=== PATIENT | male | born 1985 | race Caucasian/White ===

== ENCOUNTER 2017-08-18 10:43 | Emergency (ER) | payer OTHER ==
[~2017-08-18] VITALS: Ht 170.2 cm; Wt 86.4 kg
[2017-08-18] MEDS ORDERED: IBUP100T53 PO (10:55)
[2017-08-18] MEDS ORDERED: FLUORESCEIN SODIUM 1 MG STRIP ONE (11:51)
[2017-08-18] MEDS ORDERED: PROPARACAINE HCL 0.5% 15 ML OPHTHALMIC SOLUTION OD ONE (12:00)
[2017-08-18 13:19] VITALS: BP 124/68
== END 2017-08-18 14:10 | disposition home or self-care (01) ==
LOC: EMS 10:46
DX: S05.92XA Unspecified injury of left eye and orbit, initial encounter (principal); F17.200 Nicotine dependence, unspecified, uncomplicated; H20.9 Unspecified iridocyclitis; X58.XXXA Exposure to other specified factors, initial encounter; Y93.89 Activity, other specified; Y92.89 Other specified places as the place of occurrence of the external cause; Y99.8 Other external cause status
CPT/HCPCS: 99283; 99406

== ENCOUNTER 2019-02-24 22:02 | Emergency (ER) | payer OTHER ==
[~2019-02-24] VITALS: Ht 170.2 cm; Wt 84.1 kg
[~2019-02-24 22:02] MED LIST: IBUP100T53 PO
[2019-02-24] MEDS ORDERED: AZITHROMYCIN 250 MG TABLET PO ONE (22:15)
[2019-02-24] MEDS ORDERED: CefTRIAXone SODIUM 1 GM/VIAL IM ONE (22:15)
[2019-02-24] MEDS ORDERED: LIDOCAINE/PF 1% 2 ML VIAL IM ONE (22:15)
[2019-02-24 22:24] VITALS: BP 118/71
== END 2019-02-24 23:48 | disposition home or self-care (01) ==
LOC: EMS 22:03
DX: N34.2 Other urethritis (principal); F12.90 Cannabis use, unspecified, uncomplicated
CPT/HCPCS: 81002; 96372; 99283; J0696; J3490

== ENCOUNTER 2019-04-05 22:46 | Emergency (ER) | payer SELFPAY ==
[~2019-04-05] VITALS: Ht 170.2 cm; Wt 79.5 kg
[2019-04-05 23:15] VITALS: BP 124/72
[2019-04-05 23:42] LABS: APPEARANCE,URINE TURBID (CLEAR); GLUCOSE, URINE (UA) NEGATIVE (NEGATIVE); KETONES,URINE NEGATIVE (NEGATIVE); LEUKOCYTE ESTERASE ,URINE MODERATE (NEGATIVE); NITRATE,URINE NEGATIVE (NEGATIVE); OCCULT BLOOD,URINE MODERATE (NEGATIVE); PH,URINE 5.5 (5.0-8.0); PROTEIN,URINE POS 1+ (NEGATIVE); UROBILINOGEN,URINE 0.2 mg/dL (<=1.0)
[2019-04-05 23:46] LABS: BILIRUBIN,URINE PRELIM. POSITIVE (NEGATIVE)
[2019-04-05 23:52] LABS: BACTERIA,URINE Moderate /HPF (None Seen); RENAL EPITHELIAL CELLS,URINE Few /LPF (None Seen); SQUAMOUS EPITHELIAL CELL,UR Few /LPF (None Seen); WBC,URINE >100 /HPF (0-5)
[2019-04-06] MEDS ORDERED: LIDOCAINE/PF 1% 2 ML VIAL IM ONE (01:00)
[2019-04-06] MEDS ORDERED: AZITHROMYCIN 250 MG TABLET PO ONE (01:00)
[2019-04-06] MEDS ORDERED: CefTRIAXone SODIUM 1 GM/VIAL IM ONE (01:00)
== END 2019-04-06 01:41 | disposition home or self-care (01) ==
LOC: EMS 22:47
DX: N39.0 Urinary tract infection, site not specified (principal); A64 Unspecified sexually transmitted disease; F12.90 Cannabis use, unspecified, uncomplicated
CPT/HCPCS: 81001; 87086; 87491; 87591; 96372; 99283; J0696; J3490

== ENCOUNTER 2020-06-12 08:42 | Emergency (ER) | payer OTHER ==
[~2020-06-12] VITALS: Ht 172.7 cm; Wt 81.8 kg
[2020-06-12] MEDS ORDERED: IOVERSOL 350 MG/ML 100 ML VIAL ONE (09:13)
[2020-06-12] MEDS ORDERED: SODIUM CHLORIDE 0.9% 100 ML ONE (09:13)
[2020-06-12] MEDS ORDERED: ACETAMINOPHEN 500 MG TABLET PO ONE (09:30)
[2020-06-12] MEDS ORDERED: MORPHINE SULFATE 2 MG/ML SYRINGE IVP ONE ×2 (09:30→11:45)
[2020-06-12 09:41] LABS: BASOPHILS % (AUTO) 0.5 % (0.0-2.0); EOSINOPHILS % (AUTO) 3.8 % (1.0-6.0); HEMATOCRIT 34.7 % (41-53); HEMOGLOBIN 11.6 g/dL (13.5-17.5); LYMPHOCYTES # (AUTO) 1.9 K/uL (1.0-4.8); LYMPHOCYTES % (AUTO) 25.8 % (22.0-44.0); MEAN CORPUSCULAR HEMOGLOBIN 28.6 pg (26.0-34.0); MEAN CORPUSCULAR HGB CONC 33.3 G/dL (31.0-37.0); MEAN CORPUSCULAR VOLUME 86 fL (80-100); MONOCYTES # (AUTO) 0.8 K/uL (0.1-1.0); MONOCYTES % (AUTO) 10.3 % (2.0-9.0); NEUTROPHILS # (AUTO) 4.4 K/uL (1.8-7.7); NEUTROPHILS % (AUTO) 59.6 % (40.0-70.0); PLATELET COUNT (AUTO) 372 K/uL (150-450); RED BLOOD CELL COUNT(AUTO) 4.05 MIL/uL (4.50-5.90); RED CELL DISTRIBUTION WIDTH 12.9 % (11.5-14.5)
[2020-06-12 09:50] LABS: ANION GAP 6 mmol/L (8-16); CALCIUM, TOTAL 8.2 mg/dL (8.8-10.5); CARBON DIOXIDE 29 mmol/L (22-29); CHLORIDE 103 mmol/L (98-107); CREATININE 0.76 mg/dL (0.60-1.30); GLOMERULAR FILTR. RATE CALC > 60 mL/min (>60); GLUCOSE,RANDOM 106 mg/dL (70-110); POTASSIUM 3.7 mmol/L (3.5-5.1); SODIUM SERUM 138 mmol/L (136-145); UREA NITROGEN, BLOOD 11 mg/dL (7-18)
[2020-06-12 10:00] LABS: ALANINE AMINOTRANSFERASE 134 U/L (12-78); ALBUMIN 2.5 g/dL (3.4-5.0); ALKALINE PHOSPHATASE 630 U/L (46-116); ASPARTATE AMINOTRANSFERASE 113 U/L (15-37); BILIRUBIN,TOTAL 0.5 mg/dL (0.1-1.0); TOTAL PROTEIN, SERUM 8.8 g/dL (6.4-8.2)
[2020-06-12 11:41] LABS: APPEARANCE,URINE CLEAR (CLEAR); GLUCOSE, URINE (UA) NEGATIVE (NEGATIVE); KETONES,URINE NEGATIVE (NEGATIVE); LEUKOCYTE ESTERASE ,URINE NEGATIVE (NEGATIVE); NITRATE,URINE NEGATIVE (NEGATIVE); OCCULT BLOOD,URINE NEGATIVE (NEGATIVE); PH,URINE 6.5 (5.0-8.0); PROTEIN,URINE NEGATIVE (NEGATIVE)
[2020-06-12 11:42] LABS: BILIRUBIN,URINE PRELIM. POSITIVE (NEGATIVE)
[2020-06-12 11:48] LABS: BACTERIA,URINE None Seen /HPF (None Seen); RBC,URINE None Seen /HPF (0-2); WBC,URINE None Seen /HPF (0-5)
[2020-06-12] MEDS ORDERED: AZITHROMYCIN 500 MG TABLET PO ONE (13:00)
[2020-06-12] MEDS ORDERED: PENICILLIN G BENZATHINE LA 2,400,000 UNITS/4 ML SYRINGE IM ONE (13:00)
[2020-06-12] MEDS ORDERED: CefTRIAXone SODIUM 250 MG in DEXTROSE 5%-WATER 50 ML IV ONE (13:00)
[2020-06-12] MEDS ORDERED: BACITRACIN 0.9 GM PACKET OINTMENT TP ONE (13:30)
[2020-06-12] MEDS ORDERED: LIDOCAINE 1%/EPI 1:100,000 30 ML VIAL INJ ONE (13:30)
[2020-06-12 13:34] VITALS: BP 131/87
[2020-06-14 12:21] LABS: RPR QUANT. (TITER) Reactive (NonRea<1:1)
[2020-06-15 09:47] LABS: HIV 1-2 SCREEN 4TH GEN W/RFLX Reactive (Non Reactive); HIV INTERPRETATION HIV-1 Positive; HIV-1 ANTIBODY(MULTISPOT) Positive (Negative); HIV-2 ANTIBODY(MULTISPOT) Negative (Negative)
== END 2020-06-12 14:55 | disposition home or self-care (01) ==
LOC: EMS 08:42
DX: A64 Unspecified sexually transmitted disease (principal); R59.0 Localized enlarged lymph nodes; F12.90 Cannabis use, unspecified, uncomplicated
CPT/HCPCS: 36415; 74177; 80053; 81001; 85025; 86592; 86593; 86780; 87389; 87491; 87591; 96365; 96372; 96375; 96376; 99285; J0561; J0696; J2270; J7050; J7060; Q9967; 86701; 86702; J3490

== ENCOUNTER 2023-01-09 18:35 | Emergency (ER) | payer OTHER ==
[~2023-01-09] VITALS: Ht 170.2 cm; Wt 72.7 kg
[2023-01-09 18:52] VITALS: TEMP 98.4
[2023-01-09 19:18] VITALS: BP 126/74; PULSE 88; RESP 18
[2023-01-09] MEDS ORDERED: VANCOMYCIN HCL 1.5 GM in DEXTROSE 5%-WATER 250 ML IV ONE (20:30)
[2023-01-09] MEDS ORDERED: PIPERACILLIN/TAZO 3.375 GM/D5W 50 ML IV ONE (20:30)
== END 2023-01-09 21:22 | disposition left against medical advice (07) ==
LOC: EMS 18:35
DX: H10.32 Unspecified acute conjunctivitis, left eye (principal); F12.90 Cannabis use, unspecified, uncomplicated
CPT/HCPCS: 99282; J3370; J7060

== ENCOUNTER 2024-05-08 15:18 | Emergency (ER) | payer OTHER ==
[~2024-05-08] VITALS: Ht 175.3 cm; Wt 77.3 kg
[2024-05-08 15:21] VITALS: BP 118/73; PULSE 78; RESP 16; TEMP 98.7; O2SAT 99
[2024-05-08] MEDS: HYDROCODONE/ACETAMINOPHEN 5-325 MG TABLET PO ONE (17:23)
[2024-05-08] MEDS ORDERED: CEPH-558 PO (18:34)
[2024-05-08] MEDS ORDERED: HYDR-4062 PO ×2 (18:34→18:59)
[2024-05-08] MEDS: CEPHALEXIN MONOHYDRATE 500 MG CAPSULE PO ONE (18:43)
[2024-05-08] MEDS: PERTUSS(ACELL),DIPH,TET/PF 0.5 ML SYRINGE [ADULT] IM. ONE (18:44)
== END 2024-05-08 19:04 | disposition home or self-care (01) ==
LOC: EMS 15:18
DX: S61.412A Laceration without foreign body of left hand, initial encounter (principal); F12.90 Cannabis use, unspecified, uncomplicated; Z23 Encounter for immunization; V13.4XXA Pedal cycle driver injured in collision with car, pick-up truck or van in traffic accident, initial encounter; Y93.55 Activity, bike riding; Y92.89 Other specified places as the place of occurrence of the external cause; Y99.8 Other external cause status
CPT/HCPCS: 12002; 90471; 90715; 99283

== ENCOUNTER 2024-12-05 19:53 | Emergency (ER) | payer OTHER ==
[~2024-12-05 19:53] MED LIST changes: +CEPH-558 PO; +HYDR-4062 PO; -IBUP100T53 PO
== END 2024-12-05 20:39 | disposition left against medical advice (07) ==
LOC: EMS 19:53
DX: Z00.8 Encounter for other general examination (principal); Z53.21 Procedure and treatment not carried out due to patient leaving prior to being seen by health care provider

== ENCOUNTER 2025-05-25 05:36 | Emergency (ER) | payer OTHER ==
[~2025-05-25] VITALS: Ht 175.3 cm; Wt 79.5 kg
[2025-05-25 05:41] VITALS: BP 114/68; PULSE 71; RESP 15; TEMP 97.9; O2SAT 99
== END 2025-05-25 08:44 | disposition left against medical advice (07) ==
LOC: EMS 05:37
DX: R36.9 Urethral discharge, unspecified (principal)
CPT/HCPCS: 99281; Z7502